=== PATIENT | female | born 1985 | race Caucasian/White ===

== ENCOUNTER 2020-05-19 20:43 | Emergency (ER) | payer OTHER ==
--- NOTE | 2020-05-19 22:32 | ER Document Report ---
ED Medical Screen (RME) - General Chief Complaint: Leg Pain Stated Complaint: LEG PAIN Time Seen by Provider: 05/19/20 22:26 Primary Care Provider: KELLY,NO [Primary Care Provider] - Follow up as needed Mode of Arrival: Ambulatory Information source: Patient Notes: 34-year-old female presented to ED for complaint of pain to the back of the left leg. She states this started about May 05. She states she was loading and unloading a moving truck moved from [place] just needs very before that she noticed this bruising and not. The knot did not appear until May 08. She states she does not remember injuring herself or anything to call this is been bruising pain and not. She states her last menstrual period was April 22 she did have the insured procedure for permanent control. She does have a past medical history of asthma vertigo and Reynard's. She is alert oriented respirations regular nonlabored speaking in full sentences. She does have a b ruise and tenderness to the calf of her left leg. I have greeted and performed a rapid initial assessment of this patient. A comprehensive ED assessment and evaluation of the patient, analysis of test results and completion of medical decision making process will be conducted by an additional ED providers. - Related Data Allergies/Adverse Reactions: No Known Allergies Allergy (Verified 07/07/13 13:41) Home Medications: albuterol Past Medical History - Social History Frequency of alcohol use: None Drug Abuse: None - Past Medical History Cardiac Medical History: Denies: Hx Coronary Artery Disease, Hx Heart Attack, Hx Hypertension Pulmonary Medical History: Reports: Hx Asthma Denies: Hx Bronchitis, Hx COPD, Hx Pneumonia Neurological Medical History: Reports: Hx Migraine. Denies: Hx Cerebrovascular Accident, Hx Seizures Musculoskeltal Medical History: Reports Hx Arthritis - all over Past Surgical History: Denies: Hx Hysterectomy - Immunizations Immunizations up to date: Yes Hx Diphtheria, Pertussis, Tetanus Vaccination: Yes Physical Exam - Vital signs Vitals: Temp Pulse Resp BP Pulse Ox 98.2 F 99 20 119/65 98 05/19/20 20:54 05/19/20 20:54 05/19/20 20:54 05/19/20 20:54 05/19/20 20:54 Course - Vital Signs Vital signs: Temp Pulse Resp BP Pulse Ox 98.2 F 99 20 119/65 98 05/19/20 20:54 05/19/20 20:54 05/19/20 20:54 05/19/20 20:54 05/19/20 20:54 Doctor's Discharge - Discharge Referrals: LOCAL,NO [Primary Care Provider] - Follow up as needed
[2020-05-19 23:26] LABS: ABSOLUTE BASOPHILS # (AUTO) 0.1 10^3/uL (0.0-0.2); ABSOLUTE EOSINOPHILS # (AUTO) 0.1 10^3/uL (0.0-0.6); ABSOLUTE LYMPHOCYTES (AUTO) 2.5 10^3/uL (0.5-4.7); ABSOLUTE NEUT (AUTO) 6.9 10^3/uL (1.7-8.2); BASOPHILS % (AUTO) 0.5 % (0-2); EOSINOPHILS % (AUTO) 1.3 % (0-6); HEMATOCRIT 45.9 % (36.0-47.0); HEMOGLOBIN 15.4 g/dL (12.0-15.5); LYMPHOCYTES % (AUTO) 23.7 % (13-45); MEAN CORPUSCULAR HEMOGLOBIN 29.6 pg (27.0-33.4); MEAN CORPUSCULAR HGB CONC 33.6 g/dL (32.0-36.0); MEAN CORPUSCULAR VOLUME 88 fl (80-97); PLATELET COUNT 258 10^3/uL (150-450); RED BLOOD COUNT 5.21 10^6/uL (3.72-5.28); RED CELL DISTRIBUTION WIDTH 13.8 % (11.5-14.0); SEGMENTED NEUTROPHILS % (AUTO) 65.5 % (42-78); TOTAL CELLS COUNTED % (AUTO) 100 %; WHITE BLOOD COUNT 10.6 10^3/uL (4.0-10.5)
[2020-05-19 23:33] LABS: INTERNATIONAL RATION (INR) 1.03; PROTHROMBIN TIME 13.6 SEC (11.4-15.4)
[2020-05-19 23:34] LABS: PARTIAL THROMBOPLASTIN TIME 28.2 SEC (23.5-35.8)
[2020-05-19 23:43] LABS: ALBUMIN 4.6 g/dL (3.5-5.0); ALKALINE PHOSPHATASE 60 U/L (38-126); ANION GAP 6 (5-19); ASPARTATE AMINO TRANSFERASE 25 U/L (14-36); BILIRUBIN,TOTAL 0.5 mg/dL (0.2-1.3); BLOOD UREA NITROGEN 10 mg/dL (7-20); CALCIUM 9.4 mg/dL (8.4-10.2); CARBON DIOXIDE 26 mmol/L (22-30); CHLORIDE 102 mmol/L (98-107); GLUCOSE 92 mg/dL (75-110); POTASSIUM 4.1 mmol/L (3.6-5.0); TOTAL PROTEIN 7.6 g/dL (6.3-8.2)
[2020-05-19 23:49] LABS: D-DIMER < 0.27 ug/mL (0.00-0.50)
--- NOTE | 2020-05-20 05:21 | ER Document Report ---
ED General - General Chief Complaint: Leg Pain Stated Complaint: LEG PAIN Time Seen by Provider: 05/19/20 22:26 Primary Care Provider: KENZIE MENDOZA [Primary Care Provider] - Follow up as needed Mode of Arrival: Ambulatory - [facility] Notes: 34-year-old female with no significant medical history presents with approximately 2 weeks of pain in left lower leg. Patient first noticed a bruise on her lateral calf and then had gradually worsening pain of lateral left leg beginning below knee and shooting down to ankle. Patient had a long car ride recently but it was after pain began. First noticed pain after she was packing a moving truck from [place] to [place]. Patient denies any leg swelling, chest pain, shortness of breath, DVT risk factors - Related Data Allergies/Adverse Reactions: No Known Allergies Allergy (Verified 07/07/13 13:41) Home Medications: albuterol Past Medical History - General Information source: Patient - Social History Smoking Status: Current Every Day Smoker Frequency of alcohol use: None Drug Abuse: None Family History: CVA, Hypertension, Malignancy Patient has homicidal ideation: No - Past Medical History Cardiac Medical History: Denies: Hx Coronary Artery Disease, Hx Heart Attack, Hx Hypertension Pulmonary Medical History: Reports: Hx Asthma Denies: Hx Bronchitis, Hx COPD, Hx Pneumonia Neurological Medical History: Reports: Hx Migraine. Denies: Hx Cerebrovascular Accident, Hx Seizures Musculoskeletal Medical History: Reports Hx Arthritis - all over Past Surgical History: Denies: Hx Hysterectomy - Immunizations Immunizations up to date: Yes Hx Diphtheria, Pertussis, Tetanus Vaccination: Yes Review of Systems - Review of Systems Notes: REVIEW OF SYSTEMS: CONSTITUTIONAL : Denies fever, chills, or sweats. EENT: Denies recent cold/sinus symptoms, denies throat pain CARDIOVASCULAR: Denies chest pain, [employer] RESPIRATORY: Denies cough, denies shortness of breath. GASTROINTESTINAL: Denies abdominal pain, nausea/vomiting. GENITOURINARY: Denies difficulty urinating, painful urination. FEMALE GENITOURINARY: Denies abnormal vaginal bleeding, vaginal discharge. MUSCULOSKELETAL: Denies neck pain, back pain. SKIN: Denies rash or skin lesions. HEMATOLOGIC : Denies easy bruising or bleeding. LYMPHATIC: Denies swollen, enlarged glands. NEUROLOGICAL: Denies headache, denies change in gait. PSYCHIATRIC: Denies anxiety or stress or depression. Physical Exam - Vital signs Vitals: Temp Pulse Resp BP Pulse Ox 98.2 F 99 20 119/65 98 05/19/20 20:54 05/19/20 20:54 05/19/20 20:54 05/19/20 20:54 05/19/20 20:54 - Notes Notes: PHYSICAL EXAMINATION: GENERAL: Well-appearing, well-nourished and in no acute distress. HEAD: Atraumatic, normocephalic. EYES: Pupils equal round and appropriate constriction, sclera anicteric, conjunctiva are normal. ENT: nares patent, moist mucous membranes. NECK: Normal range of motion, supple without lymphadenopathy LUNGS: Normal respiratory rate and effort, speaking in full sentences HEART: Regular rate, no JVD, no lower extremity edema EXTREMITIES: Normal range of motion, no pitting or edema. No cyanosis. DP pulses 2+ bilaterally. No focal tenderness of left lower extremity. Christie roximately 2 cm diameter bruise on the lateral left lower leg approximately 4 inches distal to calf. Mild discomfort on palpation of lateral left leg approximately over the distribution of extensor digitorum longus. Full range of motion at all articulations, no bony tenderness in extremity, normal strength and sensation in all distributions, soft compartments NEUROLOGICAL: Awake, alert, conversing appropriately, moves all extremities spontaneously. PSYCH: Normal mood, normal affect. SKIN: Warm, Dry, normal turgor, no rashes or lesions noted. Course - Re-evaluation Re-evalutation: 05/20/20 05:32 Patient with lateral left leg pain 2 weeks without swelling, no DVT risk factors and exam and history not consistent with DVT. Patient also agrees that she thinks she likely strained a muscle in her leg. No posterior calf tenderness and no swelling of extremity. No PE symptoms. D-dimer was obtained which was negative, I spoke to patient at length about no test being on 100% able to rule out a diagnosis and told her she needed to continue to watch her symptoms and she was welcome to return during the day to have a left lower extremity ultrasound but that I was not suspicious enough of the DVT diagnosis to empiri avni anticoagulate her until then. Patient likely has a muscle strain of lateral lower leg muscles. Neurovascularly intact. Gave patient ankle stirrup and hard soled shoe as no surgical boot was available and gave her information for orthopedic and primary care follow-up. I informed patient of her hyponatremia and that dangerous diseases such as cancer can cause low sodium and that it was important that she follow this up with a primary doctor. Gave patient extensive return to ED precautions which she demonstrated understanding of. - Vital Signs Vital signs: Temp Pulse Resp BP Pulse Ox 98.2 F 68 12 114/64 99 05/20/20 01:12 05/20/20 01:12 05/20/20 01:12 05/20/20 01:12 05/20/20 01:12 - Laboratory Result Diagrams: 05/19/20 23:15 05/19/20 23:15 Laboratory results interpreted by me: 05/19/20 05/19/20 23:15 23:15 WBC 10.6 H Sodium 133.5 L Discharge - Discharge Clinical Impression: Hyponatremia Leg pain Qualifiers: Laterality: left Qualified Code(s): M79.605 - Pain in left leg Disposition: HOME, SELF-CARE Additional Instructions: Leg Pain, Nonspecific We did not find an obvious cause for your leg pain. There's no sign of blood clot, infection, or other serious disease. Possible causes of vague leg pain include muscle or joint inflammation. Rest the leg. Pain can be eased with an antiinflammatory pain medicine such as ibuprofen. If the pain involves a small area, a heating pad might help. Call the doctor or return if the leg becomes swollen, weak, discolored, or increasingly painful, or if you develop any other significant change in your health. Hyponatremia You have an abnormally low level of serum sodium, called hyponatremia. Low serum sodium may cause weakness, fatigue, confusion, or even seizures. Usually, low sodium is due to taking diuretics (water pills), combined with drinking too much water. It can also be due to excessive vomiting or diarrhea. If no obvious cause is evident, further evaluation will be necessary. If the hyponatremia results from taking diuretics, it's treated by restricting the amount of water you can drink. If it's due to vomiting and diarrhea, it's treated by drinking liberal amounts of rehydration solution (for example Lytren or Pedialyte). A follow-up blood test is often done to see that the sodium is returning to normal. Call the physician if you have severe weakness, muscle twitching or cramping, palpitations (pounding or irregular heartbeat), confusion, headache, seizures, or any other new or alarming symptoms. Follow-up with your primary care doctor and an orthopedic surgeon within 1 week. You must have your low sodium checked out by a primary doctor because low sodium could be a sign of dangerous diseases such as cancer. Return to the ED if you have any worsening symptoms such as leg swelling, worsening pain, chest pain, shortness of breath, or any other alarming symptoms. Referrals: KELLY,KENZIE [Primary Care Provider] - Follow up as needed [facility] [Provider Group] - Follow up as needed SIMA MCDANIELS MD [ACTIVE STAFF] - Follow up as needed
[2020-05-20 05:22] VITALS: BP 113/70
== END 2020-05-20 05:30 | disposition home or self-care (01) ==
LOC: ER 20:43
DX: E87.1 Hypo-osmolality and hyponatremia (principal); M79.605 Pain in left leg; M25.572 Pain in left ankle and joints of left foot; X58.XXXA Exposure to other specified factors, initial encounter; F17.200 Nicotine dependence, unspecified, uncomplicated
CPT/HCPCS: 36415; 80053; 85025; 85379; 85610; 85730; 99283

== ENCOUNTER → 2020-06-04 | Outpatient (CLI) | payer OTHER ==
--- NOTE | 2020-06-04 15:10 | WOMENS IMAGING REPORT ---
EXAM DESCRIPTION: U/S THYROID/ST TIS HEAD NECK IMAGES COMPLETED DATE/TIME: 06/04/2020 1:11 pm REASON FOR STUDY: THYROID , LOCALIZED SWELLING , NECK R22.1 R22.1 LOCALIZED SWELLING, MASS AND LUMP , NECK COMPARISON: None. TECHNIQUE: Dynamic and static aguirre-scale images acquired of the thyroid gland. Selected additional c olor/power Doppler images recorded. All images stored to PACS. LIMITATIONS: None. FINDINGS: RIGHT LOBE: Normal size. Heterogeneous echotexture. No cystic or solid masses. LEFT LOBE: Normal size. Heterogeneous echotexture. No cystic or solid masses. ISTHMUS: Normal size. Homogeneous echotexture. No cystic or solid masses. OTHER: No submandibular mass. IMPRESSION: NORMAL THYROID ULTRASOUND. TECHNICAL DOCUMENTATION: JOB ID: [id number] 2010 [employer]- All Rights Reserved Reading location - IP/workstation name: [email or web address]
== END ==
LOC: WI 12:15
PROVIDERS: ATTEND Family Medicine Geriatric Medicine
DX: R22.1 Localized swelling, mass and lump, neck (principal)
CPT/HCPCS: 76536